=== PATIENT | female | born 1960 | race Caucasian/White ===

== ENCOUNTER 2022-10-07 00:28 | Emergency (ER) | payer BC, SELFPAY ==
[2022-10-07 00:30] VITALS: BP 121/77; PULSE 69; RESP 17; TEMP 36.6; O2SAT 99; BMI 24.7
--- NOTE | 2022-10-07 00:56 | RAD_ITS ---
INDICATION: pain EXAMINATION/TECHNIQUE: X-RAY - XR Spine Lumbar 2 or 3 Views COMPARISON: None. FINDINGS: An age-indeterminate fracture of the L1 vertebral body results in loss of height of 50-75%. Minimal retropulsion. An age-indeterminate fracture of the right posterior 10th rib is not significantly displaced. 3 views of the lumbar spine were obtained. A large amount of stool is identified. RAD/Lumbar Spine 2 or 3 Views IMPRESSION: Age-indeterminate fracture of the L1 vertebral body with loss of height of 50-75%. Age-indeterminate fracture of the right 10th rib. Electronically Signed: Stu Meraz MD at 1:39 EDT ,
[2022-10-07] MEDS: Ketorolac 30 MG/ML Syringe IM (01:03)
[2022-10-07] MEDS: Orphenadrine 60 MG/2 ML Ampul IM (01:03)
--- NOTE | 2022-10-07 01:48 | CT_ITS ---
INDICATION: L1 fracture EXAMINATION: CT LUMBAR SPINE - CT Spine Lumbar W/O Contrast Injection TECHNIQUE: Helically acquired images were obtained of the lumbar spine. 2D reformats were reviewed. A radiation dose optimization technique was used for this scan. IV Contrast dosage and agent: None. COMPARISON: XR lumbar spine from the same day. FINDINGS: A fracture of the L1 vertebral body results in loss of height of 75%. The fracture is comminuted with fairly distinct fracture lines which appear acute or subacute. 2 mm of retropulsion. Mild loss of height of L4, likely long-standing. CT/Spine Lumbar without Contrast IMPRESSION: Fracture of the L1 vertebral body with loss of height of 75%, likely acute or subacute. Electronically Signed: Stu Meraz MD at 2:50 EDT ,
--- NOTE | 2022-10-07 02:42 | EX.ED.DYSGE1 ---
HPI History of Present Illness Chief Complaint: Back Narrative Narrative: Patient is a 62-year-old female with past medical history of asthma and hyperlipidemia. She states about 2 to 3 hours prior to arrival she was walking down the stairs when she missed the last step causing herself to fall backwards and landed on her buttocks/low back. She denies striking her head or any loss of consciousness and she denies any history of bleeding disorder or blood thinner use. She states eventually she was able to get up and ambulate but she has had extreme pain in the low back since that time. She states the pain is diffuse across her low back and seems to be worse if she moves back in any direction. She denies any numbness tingling or weakness she denies any loss of bowel or bladder control or IV drug use. She states she tried [id number] Tylenol with minimal symptom improvement and with concern for underlying injury presents for evaluation [facility] Medical History Asthma Hyperlipidemia Wears glasses Home Medications ketorolac 10 mg tablet 10 mg PO 4X/DAY PRN PRN pain 5 days #20 tabs 10/07/22 [Rx Last Taken Unknown] methocarbamol 500 mg tablet 1,000 mg PO 4X/DAY PRN PRN Muscle pain/spasm #56 tabs 10/07/22 [Rx Last Taken Unknown] Allergy/AdvReac Type Severity Reaction Status Date / Time No Known Allergies Allergy Verified 10/07/22 00:32 Surgical History (Updated 10/07/22 @ 00:34 by Zabrina Stock) Hx of tonsillectomy Social History Smoking Status: Never smoker ROS [facility] ED Constitutional Constitutional ED: Denies chills or fever(s) Eyes Eyes: Denies blurry vision or change in vision ENT ENT ED: Denies sore throat Cardiovascular Cardiovascular: Denies chest pain Respiratory/Chest Respiratory/Chest: Denies cough or dyspnea Gastrointestinal Gastrointestinal: Denies abdominal pain, diarrhea, nausea or vomiting Genitourinary Genitourinary ED: Denies dysuria Musculoskeletal Musculoskeletal: Reports back pain Integumentary Denies Abrasions or rash Neurologic Neurologic: Denies headache(s), paresthesias or weakness Hematologic/Lymphatic Hematologic/Lymphatic: Denies easy bleeding or easy bruising EXAM Physical Exam Const Vital Signs: 10/07/22 00:30 Temperature 97.9 F Temperature Source Temporal Pulse Rate 69 Respiratory Rate 17 Blood Pressure 121/77 H Blood Pressure Mean 91 Pulse Ox 99 Oxygen Delivery Method Room Air Positive well nourished and well developed General Appearance ED: well developed HEENT HEENT Narrative: Normocephalic atraumatic Eyes PERRL and EOMs intact bilaterally Neck supple Neck Narrative: No bony deformity or step-off of the cervical spine no midline pain with palpation Chest Wall palpation of chest normal Resp normal respiratory effort and clear to auscultation bilaterally Cardio regular rate and regular rhythm GI normal to inspection, nondistended, normoactive bowel sounds, non-tender, non-distended and no masses GI Narrative: No voluntary guarding or rigidity Auscultation: normoactive bowel sounds Palpation: soft Back/Spine Back/Spine Narrative: No bony deformity or step-off of the thoracic or lumbar spine no midline pain with palpation. Patient has increased pain with extension and sidebending and rotation of the low back. No saddle anesthesia. Negative straight leg. No clonus or Babinski. Patellar reflexes are plus 2 out of 4 bilaterally Extremity normal to inspection Neuro oriented x3, CN's II-XII intact bilaterally and no sensory deficits noted Sensorium / Orientation: alert Psych mental status grossly normal Skin no rashes or lesions noted Skin Narrative: No overlying erythema or warmth to suggest infection and no overlying abrasions or ecchymosis to suggest trauma MDM MDM MDM Narrative Medical decision making narrative: Patient presented to the ER after mechanical fall she did not strike her head or have loss of consciousness nor does she report blood thinner use or history of bleeding disorder so I felt no need for head or cervical spine CT. I also felt no need for cardiac or syncope work-up as the fall was mechanical in nature. With patient complaining of pain in the low back and trauma there is concern for compression fracture versus spondylolisthesis. Therefore an x-ray was ordered. This did show a possibly acute L1 compression fracture so a CT was added for improved visualization. CT confirmed a grade 3 L1 compression fracture with 75% compression. However there is no obvious signs of neuro claudication or nerve impingement. Also the patient has a closed fracture. Therefore at this time as the fracture is closed and there is no signs of neuro claudication or nerve impingement there is no need for emergent neurosurgery consultation. Also the patient does not have exclusive pain along the midline which makes me think that this fracture is old and not associated with the recent trauma. After Toradol and Norflex the patient had improvement of her pain and was able to ambulate to and from the bathroom with a steady gait. Therefore at this time she can be given symptomatic medications and discharged home with outpatient follow-up. History & Record Review Discussion w/independent historian: Patient and Family Radiography Diagnostic Testing: Clinical Impression(s) from Imaging Studies Lumbar Spine X-Ray 10/07/22 00:56 IMPRESSION: Age-indeterminate fracture of the L1 vertebral body with loss of height of 50-75%. Age-indeterminate fracture of the right 10th rib. Electronically Signed: Stu Meraz MD at 1:39 EDT , Lumbar Spine CT 10/07/22 01:48 IMPRESSION: Fracture of the L1 vertebral body with loss of height of 75%, likely acute or subacute. Electronically Signed: Stu Meraz MD at 2:50 EDT , Lumbar spine x-rays interpreted by the emergency medicine physician reveals an age-indeterminate L1 compression fracture Discharge Plan Triage Chief Complaint: Back ED Provider: Danielito Qureshi Dx/Rx/DC Orders Clinical Impression: Closed compression fracture of L1 vertebra, Accidental fall, History of hyperlipidemia Instructions: Compression Fx, ED Fracture, Vertebral Compression Prescriptions: New ketorolac 10 mg tablet 10 mg PO 4X/DAY PRN PRN (Reason: pain) 5 Days Qty: 20 0RF methocarbamol 500 mg tablet 1,000 mg PO 4X/DAY PRN PRN (Reason: Muscle pain/spasm) Qty: 56 0RF Primary Care Provider: ALEX MARSHALL Referrals: ALEX MARSHALL [Other] Activity Restrictions/Additional Instructions: Your CT scan shows a grade 3 compression fracture. However as you have no signs of neurologic impingement this can be treated on an outpatient basis. You should follow-up with a neurosurgeon or an orthopedic surgeon who specializes in spine to discuss treatment options such as pain control bracing or surgery. Please do not lift pull or push and leaning over 10 to 15 pounds for the next 1 to 2 weeks to help with healing and return to the ER should you have any further concerns. Disposition Disposition: Home, Self Care Discharge Date/Time: 10/07/22 03:25
[2022-10-07 03:24] VITALS: BP 129/88; PULSE 67; RESP 15; O2SAT 98
== END 2022-10-07 03:25 | disposition home or self-care (01) ==
PROVIDERS: Emergency Provider Emergency Medicine; Visit Provider Emergency Medicine
DX: S32.019A Unspecified fracture of first lumbar vertebra, initial encounter for closed fracture (principal); W10.9XXA Fall (on) (from) unspecified stairs and steps, initial encounter; Y93.01 Activity, walking, marching and hiking; E78.5 Hyperlipidemia, unspecified
CPT/HCPCS: 72100; 72131; 96372; 99282